=== PATIENT | female | born 1965 | race Caucasian/White ===

== ENCOUNTER 2018-11-15 13:16 | Day surgery (SDC) | payer OTHER ==
[~2018-11-15] VITALS: Ht 160 cm; Wt 52.6 kg
[~2018-11-15 13:16] MED LIST: BUPIVACAINE/PF 0.25% ONE; CEFAZOLIN 1,000 MG ONE; CHOL200052 PO; DEXAMETHASONE 4 MG/ML, 1ML ONE; EPINEPHRINE 1 MG/ML, 1ML ONE; FENTANYL PF 250 MCG/5ML ONE; KETOROLAC 30 MG/1 ML ONE; MIDAZOLAM 1 MG/ML, 2ML ONE; MULT-208 PO; OMEG-14 PO; ONDANSETRON 2MG/ML, 2ML ONE; PROPOFOL 10 MG/ML, 20ML ONE; SODIUM CHLORIDE 0.9% PF 10ML ONE
[2018-11-15] MEDS ORDERED: LACTATED RINGERS 1,000 ML IV SCH ×2 (13:26→14:30)
[2018-11-15 13:29] VITALS: BP 121/66
[2018-11-15] MEDS ORDERED: KETOROLAC 30 MG/1 ML ONE (13:51)
[2018-11-15] MEDS ORDERED: MORPHINE SULFATE 4 MG/ML, 1ML IVPush PRN (14:00)
[2018-11-15] MEDS ORDERED: hydrALAzine 20 MG/ML, 1ML IV PRN (14:00)
[2018-11-15] MEDS ORDERED: ACETAMINOPHEN 325 MG TABLET PO PRN (14:00)
[2018-11-15] MEDS ORDERED: OXYcodone 5 MG/5 ML ORAL.SOL UDC PO PRN (14:00)
[2018-11-15] MEDS ORDERED: ONDANSETRON ODT 8 MG PO PRN (14:00)
[2018-11-15] MEDS ORDERED: MEPERIDINE/PF 25MG/0.5ML IVPush PRN (14:00)
[2018-11-15] MEDS ORDERED: PROMETHAZINE 12.5 MG SUPP PR PRN (14:00)
[2018-11-15] MEDS ORDERED: PROMETHAZINE 25 MG SUPP PR PRN (14:00)
[2018-11-15] MEDS ORDERED: PROMETHAZINE 25 MG/ML, 1ML IM PRN ×2 (14:00)
[2018-11-15] MEDS ORDERED: LABETALOL 5MG/ML, 20ML IV PRN (14:00)
[2018-11-15] MEDS ORDERED: PROMETHAZINE 25 MG/ML, 1ML IV PRN (14:00)
[2018-11-15] MEDS ORDERED: HYDROmorphone 2 MG/ML, 1ML IVPush PRN (14:00)
[2018-11-15] MEDS ORDERED: ONDANSETRON 2MG/ML, 2ML IV PRN (14:00)
[2018-11-15] MEDS ORDERED: IBUPROFEN 600 MG TABLET PO PRN (14:30)
[2018-11-15] MEDS ORDERED: PROMETHAZINE 12.5 MG SUPP PR ONE (14:30)
[2018-11-15] MEDS ORDERED: HYDROcodone/APAP 5/325 TABLET PO PRN (14:30)
[2018-11-15] MEDS ORDERED: ONDANSETRON 2MG/ML, 2ML IVPush PRN (14:30)
[2018-11-15] MEDS ORDERED: ACETAMINOPHEN 650 MG/20.3 ML UDC ONE (14:38)
[2018-11-15] MEDS ORDERED: OXYcodone 5 MG/5 ML ORAL.SOL UDC ONE (14:38)
[2018-11-15] MEDS ORDERED: FENTANYL PF 100 MCG/2ML ONE (14:39)
[2018-11-15] MEDS: FENTANYL PF 100 MCG/2ML IV PRN ×2 (14:50→15:10)
== END 2018-11-15 17:15 | disposition home or self-care (01) ==
LOC: OUT 13:16
PROVIDERS: ATTEND Obstetrics & Gynecology Female Pelvic Medicine and Reconstructive Surgery
DX: N72 Inflammatory disease of cervix uteri (principal); Z87.442 Personal history of urinary calculi; Z98.890 Other specified postprocedural states
CPT/HCPCS: 58301; 58558; 88305; J0171; J0690; J1100; J1885; J2250; J2405; J2704; J3010; J3490; J7120